=== PATIENT | female | born 1960 | race Caucasian/White ===

== ENCOUNTER 2016-03-09 19:16 | Emergency (ER) | payer OTHER ==
--- NOTE | 2016-03-09 19:36 | Emergency Department Record ---
History of Present Illness - General Chief Complaint: Knee injury Stated Complaint: LT KNEE INJURY Time Seen by Provider: 03/09/16 19:33 Source: Patient Mode of Arrival: Wheelchair Limitations: No limitations - History of Present Illness Initial Comments: The patient slipped and fell about 30 minutes ago and landed on her L knee. Now it is quite painful and she is unable to walk on it. She denies any numbness or tingling. MD Complaint: Knee injury Onset/Timin -: Minutes(s) Type of Injury: Blunt Place: Home Severity: Moderate Severity scale (1-10): 10 Improves With: Nothing Context: Fall, Walking Associated Symptoms: Unable to bear weight - Related Data Home Medications Medication Instructions Recorded Confirmed Last Taken Calcium Citrate/Magnesium/D3 1 each PO DAILY 03/09/16 03/09/16 03/09/16 [Calcium Citrate Chewable Wafer] Carisoprodol [Soma] 350 mg PO DAILY 03/09/16 03/09/16 03/09/16 Citalopram Hydrobromide 20 mg PO DAILY 03/09/16 03/09/16 03/09/16 [Citalopram HBr] Cyanocobalamin (Vitamin B-12) 1,000 mcg PO DAILY 03/09/16 03/09/16 03/09/16 [Vitamin B-12] Diclofenac Sodium [Voltaren] 100 gm TP ASDIR 03/09/16 03/09/16 03/09/16 Hydrocodone/Acetaminophen [Yoder 1 tab PO Q6H PRN 03/09/16 03/09/16 03/09/16 10mg/325mg] L.acidoph & Paracasei,B.lactis 1 each PO DAILY 03/09/16 03/09/16 03/09/16 [Probiotic] Towson-3 Fatty Acids/Fish Oil [Fish 1 each PO DAILY 03/09/16 03/09/16 03/09/16 Oil 1,000 mg Softgel] Prednisone [Prednisone 10Mg] 10 mg PO BID 03/09/16 03/09/16 03/09/16 Sulfasalazine [Azulfidine] 500 mg PO DAILY 03/09/16 03/09/16 03/09/16 Temazepam [Restoril] 30 mg PO QHS 03/09/16 03/09/16 03/09/16 Allergies Allergy/AdvReac Type Severity Reaction Status Date / Time No Known Drug Allergies Allergy Verified 03/09/16 19:32 Travel Screening - Travel/Exposure Within Last 30 Days Have you traveled within the last 30 days?: No - Travel/Exposure Within Last Year Have you traveled outside the [place] in the last year?: No - Additonal Travel Details Have you been exposed to anyone with a communicable illness?: No - Travel Symptoms Symptom Screening: None Review of Systems Constitutional: Denies: Chills, Fever Eyes: Denies: Eye discharge ENT: Denies: Congestion Respiratory: Denies: Cough, Dyspnea Cardiovascular: Denies: Chest pain Past Medical History - SOCIAL HISTORY Smoking Status: Current every day smoker Alcohol Use: None Drug Use: None - RESPIRATORY Hx Respiratory Disorders: No - NEURO Hx Neuro Disorders: No - GI Hx Crohn's Disease: Yes Comment:: ulcerative colitis - Hx Genitourinary Disorders: No - ENDOCRINE Hx Endocrine Disorders: No - MUSCULOSKELETAL Hx Musculoskeletal Disorders: No Comment:: scoliosis - PSYCH Hx Psych Problems: Yes Hx Depression: Yes - HEMATOLOGY/ONCOLOGY Hx Hematology/Oncology Disorders: No Family Medical History Any Significant Family History?: No Physical Exam - General General Appearance: Alert, Oriented x3, Cooperative, No acute distress - Head Head exam: Atraumatic, Normocephalic, Normal inspection - Eye Eye exam: Normal appearance, PERRL - Extremities Extremities exam: Tenderness (There is diffuse anterior R knee tenderness.), Other (The L lower leg is NVI with normal pulses.). negative: Normal inspection (There is slight edema to the anterior knee with a possible small effusion.), Full ROM (Very decreased ROM due to pain.) Course Vital Signs 03/09/16 19:24 Temperature 98.1 F Pulse Rate 92 H Respiratory 20 Rate Blood Pressure 144/95 Pulse Ox 96 - Reevaluation(s) Reevaluation #1: I did discuss the xrays with the patient and the need for F/U. I did also discuss the case with Dr. Yeh and he will see the patient in the office on in 2 days. 03/09/16 20:11 Medical Decision Making - Data Complexity MDM Data: X-Ray Ordered and/or Reviewed - Radiology Data Radiology results: Report reviewed (Knee: Mod joint effusion with probable L lateral tibial plateau fx nondepressed.) Disposition Disposition: Discharge Clinical Impression: Fracture of left tibial plateau Qualifiers: Encounter type: initial encounter Fracture type: closed Qualified Code(s): S82.142A - Displaced bicondylar fracture of left tibia, initial encounter for closed fracture Disposition: Home, Self-Care Condition: (1) Good Instructions: Knee Effusion (ED) Additional Instructions: Please use the immobilizer during the day and use your home walker. Do not weight bear on the L leg. Continue your home pain medicines and use ice on the knee during the day. Please see Dr. Yeh in the Specialty clinic in 2 days. Referrals: [facility] Specialty Clinics [Provider Group] Forms: Patient Portal Access Time of Disposition: 20:14
[2016-03-09] MEDS ORDERED: KETOROLAC 30 MG/ML VIAL IM ONE (19:38)
[2016-03-09] MEDS ORDERED: MORPHINE SULFATE 5 MG/ML PFS IM ONE (20:25)
--- NOTE | 2016-03-11 15:13 | RADIOLOGY REPORT ---
EXAM: LEFT KNEE, FOUR VIEWS HISTORY: SLIPPED ON ICE, FELL ON LEFT KNEE, ACUTE LEFT KNEE PAIN. TECHNIQUE: Four views of the left knee were obtained. Comparison: None. Encounter: Initial. FINDINGS: Marked distention of the left suprapatellar recess with fat fluid level. Curvilinear lucency projects over the lateral tibial plateau on the tunnel view for which nondepressed fracture is not excluded. The patella is intact. No degenerative change. IMPRESSION: PROMINENT LIPOHEMARTHROSIS OF THE LEFT KNEE. SUSPECT NONDISPLACED LEFT LATERAL TIBIAL PLATEAU FRACTURE. [facility]BER: [id number] [facility]
== END 2016-03-09 21:00 | disposition home or self-care (01) ==
LOC: ER 19:16
DX: S82.142A Displaced bicondylar fracture of left tibia, initial encounter for closed fracture (principal); W00.0XXA Fall on same level due to ice and snow, initial encounter; Y92.009 Unspecified place in unspecified non-institutional (private) residence as the place of occurrence of the external cause
CPT/HCPCS: 29505; 99283; 96372; 99284; 73564; J2270

== ENCOUNTER 2017-08-22 10:35 | Day surgery (SDC) | payer MEDICAID ==
[2017-08-22] MEDS ORDERED: PROPOFOL 10 MG/ML VIAL IV ONE (10:36)
[2017-08-22] MEDS ORDERED: LIDOCAINE 1% MDV (10MG/ML) 20ML VIAL SQ ONE (10:36)
--- NOTE | 2017-08-25 16:30 | Operative Note ---
DATE OF SURGERY: 08/22/2017 OPERATION: COLONOSCOPY to the cecum with multiple biopsies. INDICATION: History of ulcerative colitis. HISTORY: The patient is a pleasant 57-year-old female who presents today for colonoscopy. I saw her late last year for the first time with a diagnosis she claims was made 30 years ago. Her last colonoscopy, she thought, was more than 15 years ago. I recommended a colonoscopy at that time and did a stool analysis for pathogens as she was having 12-15 stools a day. Laboratory demonstrated a normal hemoglobin but an elevated CRP. She was also started on prednisone at that time and states that this helped significantly in reducing her stooling from more than 12 a day down to 1 or 2 a day with formed stools. She states in the past she had been treated with steroids as well. She was only taking sulfasalazine 1.5 g daily at the time of my first visit with her. She presents today, I mentioned, for her first colonoscopy with me. ANESTHESIA: Intravenous sedation was administered by the Department of Anesthesiology and included Diprivan titrated to effect. PROCEDURE: Following informed consent from this alert individual including a discussion of the risks and benefits of the procedure and an opportunity for the patient to ask questions, the patient was in the left lateral decubitus position. A digital rectal examination was performed. No abnormalities were noted. Following this, the Olympus [id number] video colonoscope was inserted into the rectum without resistance. The rectal mucosa had a normal appearance with normal folds and distensibility as best visualized. There was some retained liquid and semi-solid stool noted in the rectum and, in fact, throughout the colon. The colonoscope was advanced up through the colon to the level of the cecum which was identified by noting the ileocecal pouch. Unfortunately, there was a fair amount of retained stool within the cecum as well. It was difficult to cannulate the terminal ileum as the ileocecal valve was not well visualized due to retained liquid and solid stool. Washing and suction was employed vigorously throughout. Upon initial inspection, there were focal areas of edema with erythema and superficial erosions, particularly in the right colon and transverse colon. The rectum seemed to be less involved. From the base of the cecum, the colonoscope was then withdrawn. Random biopsies were taken from throughout the right colon, left colon and from the rectosigmoid colon upon withdrawal. Again, the majority of the mucosa was well visualized; however, parts were obscured somewhat by retained stool. There were erosive, edematous, erythematous, friable-appearing mucosa in the right colon and left colon with most inflammatory change noted in the right. Again, the rectum seemed to be relatively less inflamed. Retroflexion in the rectum was endoscopically fairly unremarkable as visualized. The endoscope was straightened and withdrawn. The patient tolerated the procedure well and was returned to the recovery area in stable condition. IMPRESSION: 1. Rather diffuse colitis with edema, erythema, friability and superficial erosions, particularly in the right colon and proximal left colon. The sigmoid colon and rectum seemed to be less involved. Biopsies were taken from throughout the right colon, left colon and rectosigmoid colon. 2. Preparation was fair at best with washing and suctioning employed vigorously for better visualization. 3. Unable to cannulate the terminal ileum. RECOMMENDATIONS: At this point, will start the patient on Lialda 2 tablets each morning. I will have a followup in the office to discuss treatment options pending biopsy results. Again clinically, she states she is doing quite well at this time after having gone through a course of steroids. Follow up also with Dr. Arevalo. CC: Sean Arevalo M.D. [facility]PITALRojas
== END 2017-08-22 12:30 | disposition home or self-care (01) ==
LOC: HOP 10:35
PROVIDERS: ATTEND Internal Medicine Gastroenterology
DX: Z12.11 Encounter for screening for malignant neoplasm of colon (principal); K52.9 Noninfective gastroenteritis and colitis, unspecified; Z87.19 Personal history of other diseases of the digestive system; I10 Essential (primary) hypertension

== ENCOUNTER 2019-01-15 09:46 | Day surgery (SDC) | payer MEDICAID ==
[2019-01-15] MEDS ORDERED: LIDOCAINE 2% MDV (20MG/ML) 20ML VIAL IV ONE (09:47)
[2019-01-15] MEDS ORDERED: PROPOFOL 10 MG/ML VIAL IV ONE (09:47)
--- NOTE | 2019-01-16 06:02 | Operative Note ---
OPERATION: COLONOSCOPY to the cecum with multiple biopsies. INDICATION: History of chronic ulcerative colitis. The patient clinically has done well with Azulfidine 2 g daily. She claims she has 1 stool daily which is well formed. Colonoscopy is performed at this time for surveillance. Her last examination was 1 year ago with a suboptimal preparation. ANESTHESIA: Intravenous sedation was administered by the department of anesthesiology and included Diprivan titrated to effect. PROCEDURE: Following informed consent from this alert individual including a discussion of the risks and benefits of the procedure and an opportunity for the patient to ask questions, the patient was in the left lateral decubitus position. A digital rectal examination was performed. No abnormalities were noted. Following this, the Olympus [id number] video colonoscope was inserted into the rectum without resistance. The rectal mucosa had a normal appearance with normal folds and distensibility. The colonoscope was advanced up through the colon to the level of the cecum without much difficulty. There were focal areas of edema and erythema throughout the colon without large ulcerations or granular appearance to the mucosa. The cecum was defined by noting the appendiceal orifice and ileocecal valve. From this point, the colonoscope was then slowly withdrawn. Overall the colon preparation was adequate. Again there was edema essentially throughout the colon with focal areas of superficial erosive changes. Biopsies were taken first from the cecum itself. A second set of biopsies was taken from throughout the right colon. A third set of biopsies taken from throughout the left colon. There were no polyps noted. There was no diverticulosis. Retroflexion in the rectum was endoscopically unremarkable. The endoscope was straightened and removed. The patient tolerated the procedure well and was returned to the recovery area in stable condition. IMPRESSION: Diffuse edematous-appearing mucosa with focal areas of erosion and erythema essentially throughout the colon. multiple biopsies taken as described above from the cecum, right colon, and left colon upon withdrawal. RECOMMENDATIONS: Further recommendations will be forthcoming pending results of pathology obtained today. The patient will continue on her current medical regimen. Followup will also be with Dr. Arevalo. As always, thank you for allowing me to participate in the care of your patient. BOONE
== END 2019-01-15 12:05 | disposition home or self-care (01) ==
LOC: HOP 09:46
PROVIDERS: ATTEND Internal Medicine Gastroenterology
DX: Z09 Encounter for follow-up examination after completed treatment for conditions other than malignant neoplasm (principal); Z87.19 Personal history of other diseases of the digestive system; I10 Essential (primary) hypertension; M06.9 Rheumatoid arthritis, unspecified